=== PATIENT | male | born 1990 ===

== ENCOUNTER 2022-11-07 18:20 | Emergency (ER) | payer OTHER ==
[2022-11-07] MEDS ORDERED: Sodium Chloride 0.9% 1,000 ML IV ONE (18:38)
[2022-11-07] MEDS ORDERED: Sodium Chloride 0.9% 10 ML Syringe FLUSH PRN (18:38)
[2022-11-07 19:01] LABS: BASOPHILS PERCENT AUTO 0.3 % (0.0-1.0); EOSINOPHILS PERCENT AUTO 4.2 % (1.0-3.0); HEMATOCRIT 43.9 % (40.0-54.0); HEMOGLOBIN 14.9 g/dL (14.0-18.0); MEAN CORPUSCULAR HEMOGLOBIN 30.7 pg (27.0-34.0); MEAN CORPUSCULAR HGB CONC 33.9 g/dL (33.0-35.0); MEAN CORPUSCULAR VOLUME 90.3 fL (80-100); MONOCYTES PERCENT AUTO 8.9 % (2-8); NEUTROPHILS PERCENT AUTO 51.6 % (42.2-75.2); PLATELET COUNT,PLT 258 10^3/uL (150-450); RED BLOOD CELL COUNT 4.86 10^6/uL (4.6-6.2); WHITE BLOOD CELL COUNT,WBC 5.9 10^3/uL (5.0-10.0)
[2022-11-07 19:17] LABS: ALBUMIN 3.8 g/dL (3.4-5.0); ANION GAP 15.9 mEq/L (7-13); BILIRUBIN TOTAL 0.3 mg/dL (0.2-1.0); BUN/CREATININE RATIO 8.8 (No establ ref range); C-REACTIVE PROTEIN 0.11 ng/dL (<=0.30); CALCIUM 8.3 mg/dL (8.5-10.1); CREATININE 0.91 mg/dL (0.70-1.30); EST CRCL DRUG DOSING (CG) 129.1 mL/min; MAGNESIUM 1.9 mg/dL (1.8-2.4); POTASSIUM,K 3.9 mmol/L (3.5-5.1); PROTEIN TOTAL,TP 7.6 g/dL (6.4-8.2)
[2022-11-07 19:33] LABS: LACTIC ACID 2.3 mmol/L (0.4-2.0)
[2022-11-07 19:36] LABS: INR 0.9 (0.9-1.2); PROTHROMBIN TIME 9.7 SEC (9.0-12.0); PTT,PARTIAL THROMBOPLSTIN TIME 26.1 SEC (22.0-34.0)
[2022-11-07 19:50] LABS: APPEARANCE,URINE CLEAR (CLEAR); BILIRUBIN,URINE NEGATIVE (NEGATIVE); COLOR,URINE YELLOW (YELLOW); GLUCOSE,URINE NEGATIVE (NEGATIVE); KETONES,URINE NEGATIVE (NEGATIVE); LEUKOCYTE ESTERASE,URINE NEGATIVE (NEGATIVE); NITRITE,URINE NEGATIVE (NEGATIVE); OCCULT BLOOD,URINE NEGATIVE (NEGATIVE); PH,URINE 5.5 (5.0-9.0); PROTEIN,URINE NEGATIVE (NEGATIVE); UROBILINOGEN,URINE 0.2 mg/dL (0.2-1.0)
[2022-11-07 19:59] LABS: AMPHETAMINES,URINE NEGATIVE (NEGATIVE); BARBITURATES,URINE NEGATIVE (NEGATIVE); BENZODIAZEPINE,URINE NEGATIVE (NEGATIVE); MDMA (ECSTASY), URINE NEGATIVE (NEGATIVE); METHADONE,URINE NEGATIVE (NEGATIVE); METHAMPHETAMINES,URINE NEGATIVE (NEGATIVE); OPIATES,URINE NEGATIVE (NEGATIVE); OXYCODONE,URINE NEGATIVE (NEGATIVE); PHENCYCLIDINE,URINE NEGATIVE (NEGATIVE); TCA,URINE NEGATIVE (NEGATIVE)
[2022-11-07] MEDS ORDERED: Lactated Ringers 1,000 ML IV ONE (20:06)
== END 2022-11-07 21:15 | disposition other institution (70) ==
LOC: DL.ED 18:20
DX: F10.230 Alcohol dependence with withdrawal, uncomplicated (principal); E87.0 Hyperosmolality and hypernatremia; E86.0 Dehydration
CPT/HCPCS: 36415; 80053; 80305-QW; 80307; 81003; 83605; 83735; 84484; 85025; 85610; 85730; 86140; 93005; 93010; 96360; 96361; 99284; 99285-25; J3490; J7030; J7120

== ENCOUNTER 2024-05-01 19:26 | Emergency (ER) | payer OTHER ==
[2024-05-01 19:57] LABS: BASOPHILS PERCENT AUTO 0.3 % (0.0-1.0); EOSINOPHILS PERCENT AUTO 1.2 % (1.0-3.0); HEMATOCRIT 42.3 % (40.0-54.0); HEMOGLOBIN 14.6 g/dL (14.0-18.0); LYMPHOCYTES PERCENT AUTO 15.1 % (20.5-50.1); MEAN CORPUSCULAR HEMOGLOBIN 30.4 pg (27.0-34.0); MEAN CORPUSCULAR HGB CONC 34.5 g/dL (33.0-35.0); MEAN CORPUSCULAR VOLUME 88.1 fL (80-100); MONOCYTES PERCENT AUTO 7.6 % (2-8); NEUTROPHILS PERCENT AUTO 75.8 % (42.2-75.2); PLATELET COUNT,PLT 98 10^3/uL (150-450); WHITE BLOOD CELL COUNT,WBC 5.8 10^3/uL (5.0-10.0)
[2024-05-01 20:12] LABS: INR 0.9 (0.9-1.2); PROTHROMBIN TIME 9.9 SEC (9.0-12.0)
[2024-05-01] MEDS: MVI, Adult with Vitamin K 10 ML, Folic Acid 1 MG, Thiamine 100 MG in Lactated Ringers 1... IV ONE (20:14)
[2024-05-01 20:19] LABS: ALBUMIN 3.9 g/dL (3.4-5.0); ANION GAP 18.3 mEq/L (7-13); BILIRUBIN TOTAL 0.4 mg/dL (0.2-1.0); BUN/CREATININE RATIO 5.8 (No establ ref range); CALCIUM 8.8 mg/dL (8.5-10.1); CREATININE 1.03 mg/dL (0.70-1.30); EST CRCL DRUG DOSING (CG) 113.01 mL/min; POTASSIUM,K 4.3 mmol/L (3.5-5.1)
[2024-05-01] MEDS: Ondansetron 4 MG/2 ML SDV IVPUSH ONE (20:21)
[2024-05-01] MEDS: chlordiazePOXIDE 25 MG Cap PO ONE ×2 (20:21→22:13)
[2024-05-01 21:10] LABS: AMPHETAMINES,URINE NEGATIVE (NEGATIVE); BARBITURATES,URINE NEGATIVE (NEGATIVE); BENZODIAZEPINE,URINE NEGATIVE (NEGATIVE); MDMA (ECSTASY), URINE NEGATIVE (NEGATIVE); METHADONE,URINE NEGATIVE (NEGATIVE); METHAMPHETAMINES,URINE NEGATIVE (NEGATIVE); OPIATES,URINE NEGATIVE (NEGATIVE); OXYCODONE,URINE NEGATIVE (NEGATIVE); PHENCYCLIDINE,URINE NEGATIVE (NEGATIVE); TCA,URINE NEGATIVE (NEGATIVE)
[2024-05-01 21:11] LABS: APPEARANCE,URINE CLEAR (CLEAR); BILIRUBIN,URINE NEGATIVE (NEGATIVE); COLOR,URINE YELLOW (YELLOW); GLUCOSE,URINE NEGATIVE (NEGATIVE); KETONES,URINE NEGATIVE (NEGATIVE); LEUKOCYTE ESTERASE,URINE NEGATIVE (NEGATIVE); NITRITE,URINE NEGATIVE (NEGATIVE); OCCULT BLOOD,URINE NEGATIVE (NEGATIVE); PROTEIN,URINE NEGATIVE (NEGATIVE); UROBILINOGEN,URINE 0.2 mg/dL (0.2-1.0)
== END 2024-05-01 22:14 | disposition home or self-care (01) ==
LOC: DL.ED 19:26
DX: F10.139 Alcohol abuse with withdrawal, unspecified (principal); E86.0 Dehydration; R94.5 Abnormal results of liver function studies; F17.290 Nicotine dependence, other tobacco product, uncomplicated; Y90.0 Blood alcohol level of less than 20 mg/100 ml
CPT/HCPCS: 36415; 71045; 80053; 80305; 80307; 81003; 83690; 83735; 84484; 85025; 85610; 93005; 96365; 96375; 99285; A9270; J2405; J3411; J7120; 93010; 99284; J3490